=== PATIENT | male | born 1980 | race Hispanic/Latino ===

== ENCOUNTER 2017-10-23 21:20 | Emergency (ER) | payer BC ==
[~2017-10-23] VITALS: Ht 177.8 cm; Wt 117.9 kg
[2017-10-23] MEDS ORDERED: FLUORESCEIN SOD(OPTH) 1 MG STRP OP ONE (21:30)
[2017-10-23] MEDS ORDERED: TETRACAINE HCL 0.5% OPTH SOLN 4 ML BTL OP ONE (21:30)
[2017-10-23] MEDS ORDERED: TETRACAINE HCL 0.5% OPTH SOLN 4 ML BTL ONE (21:34)
[2017-10-23] MEDS ORDERED: EYE IRRIGATION (OPTH) 120 ML BTL OP ONE (23:15)
== END 2017-10-23 23:30 | disposition home or self-care (01) ==
LOC: ER 21:20
DX: H57.12 Ocular pain, left eye (principal); H10.32 Unspecified acute conjunctivitis, left eye
CPT/HCPCS: 99282